=== PATIENT | female | born 1995 | race American Indian/Alaskan Native ===

== ENCOUNTER 2018-01-01 09:18 | Emergency (ER) | payer SELFPAY ==
[2018-01-01 09:32] VITALS: BP 119/72
--- NOTE | 2018-01-01 10:04 | Emergency Department Report ---
- General Chief Complaint: Upper Respiratory Infection Stated Complaint: CONGESTION/SINUS Time Seen by Provider: 01/01/18 09:59 Source: patient Mode of arrival: Ambulatory Limitations: No Limitations - History of Present Illness MD Complaint: cough, rhinorrhea, nasal congestion -: Gradual, days(s) (1) Severity: mild - Related Data Allergies Allergy/AdvReac Type Severity Reaction Status Date / Time No Known Allergies Allergy Verified 01/01/18 09:32 ED Review of Systems ROS: Stated complaint: CONGESTION/SINUS Other details as noted in HPI Constitutional: malaise. denies: fever ENT: throat pain Respiratory: denies: cough Gastrointestinal: denies: abdominal pain ED Past Medical Hx - Past Medical History Previous Medical History?: No - Surgical History Past Surgical History?: No - Social History Smoking Status: Never Smoker Substance Use Type: Alcohol, Marijuana ED Physical Exam - General Limitations: No Limitations General appearance: alert, in no apparent distress - Head Head exam: Present: atraumatic, normocephalic - Eye Eye exam: Present: normal appearance - ENT ENT exam: Present: normal orophraynx, mucous membranes moist - Neck Neck exam: Present: normal inspection. Absent: tenderness, meningismus - Respiratory Respiratory exam: Present: normal lung sounds bilaterally. Absent: respiratory distress, wheezes, rales, rhonchi, stridor - Cardiovascular Cardiovascular Exam: Present: regular rate, normal rhythm, normal heart sounds. Absent: bradycardia, tachycardia, systolic murmur, diastolic murmur - GI/Abdominal GI/Abdominal exam: Present: soft. Absent: distended, tenderness, guarding, rebound - Extremities Exam Extremities exam: Present: normal inspection - Psychiatric Psychiatric exam: Present: normal affect, normal mood - Skin Skin exam: Present: warm, dry, intact, normal color ED Course Vital Signs 01/01/18 09:28 Temperature 98.7 F Pulse Rate 91 H Respiratory 16 Rate Blood Pressure 119/72 O2 Sat by Pulse 99 Oximetry ED Medical Decision Making - Medical Decision Making URI, without fever, given supportive care instructions Critical care attestation.: If time is entered above; I have spent that time in minutes in the direct care of this critically ill patient, excluding procedure time. ED Disposition Clinical Impression: URI (upper respiratory infection) Disposition: - TO HOME OR SELFCARE Is pt being admited?: No Does the pt Need Aspirin: No Condition: Stable Instructions: Upper Respiratory Infection (ED) Forms: Work/School Release Form(ED)
== END 2018-01-01 10:09 | disposition home or self-care (01) ==
LOC: ED 09:18
DX: J06.9 Acute upper respiratory infection, unspecified (principal); F12.10 Cannabis abuse, uncomplicated
CPT/HCPCS: 99282

== ENCOUNTER 2018-01-02 18:29 | Emergency (ER) | payer SELFPAY ==
[2018-01-02 19:43] LABS: HCG Qualitative,Urine Negative (Negative)
[2018-01-02 19:44] LABS: Bilirubin,Urine NEG (Negative); Blood,Urine NEG (Negative); Color,Urine Yellow (Yellow); Mucus,Urine 3+ /HPF; Urobilinogen,Urine < 2.0 mg/dL (<2.0)
--- NOTE | 2018-01-02 19:45 | Emergency Department Report ---
ED Female HPI - General Chief complaint: Urogenital-Female Stated complaint: VAGINAL DISCHARGE Time Seen by Provider: 01/02/18 19:42 Source: patient Mode of arrival: Ambulatory Limitations: No Limitations - History of Present Illness Initial comments: 22-year-old -[place] female comes to the emergency room complaining of vaginal discharge with a foul odor and urinary frequency. Patient denies any abdominal pain no dysuria no nausea no vomiting no fever or chills. Patient essentially active with men unprotected one partner in the last 6 months. Patient's had a history of STD in the past. She does not have a primary care provider. Last menstrual period was 12/17/2017. Complaint: vaginal discharge -: week(s) (1) Are you Now?: No Last Menstrual Period: 12/17/17 EDC: 09/23/18 Associated Symptoms: vaginal discharge, other (urinary frequency) - Related Data Sexually active: Yes (with men one partner last 6 months unprotected) : 0 Previous Rx's Medication Instructions Recorded Last Taken Type Fluconazole [Diflucan TAB] 150 mg PO ONCE 1 Days #1 tablet 01/02/18 Unknown Rx Allergies Allergy/AdvReac Type Severity Reaction Status Date / Time No Known Allergies Allergy Verified 01/01/18 09:32 ED Review of Systems ROS: Stated complaint: VAGINAL DISCHARGE Other details as noted in HPI Comment: All other systems reviewed and negative Gastrointestinal: denies: abdominal pain, nausea, diarrhea Genitourinary: urgency, frequency, discharge ED Past Medical Hx - Past Medical History Previous Medical History?: No - Surgical History Past Surgical History?: No - Social History Smoking Status: Never Smoker Substance Use Type: None - Medications Home Medications: Home Medications Medication Instructions Recorded Confirmed Last Taken Type Fluconazole [Diflucan TAB] 150 mg PO ONCE 1 Days #1 tablet 01/02/18 Unknown Rx ED Physical Exam - General Limitations: No Limitations General appearance: alert, in no apparent distress - Head Head exam: Present: atraumatic, normocephalic - ENT ENT exam: Present: mucous membranes moist - Neck Neck exam: Present: normal inspection - External exam: Present: normal external exam. Absent: erythema, swelling Speculum exam: Present: vaginal discharge, cervical discharge Bi-manual exam: Present: normal bi-manual exam. Absent: cervical motion tendernes, adnexal tenderness, adnexal mass, uterine enlargement, uterine tenderness - Extremities Exam Extremities exam: Present: normal inspection - Back Exam Back exam: Present: normal inspection - Neurological Exam Neurological exam: Present: alert, oriented X3 - Psychiatric Psychiatric exam: Present: normal affect, normal mood - Skin Skin exam: Present: warm, dry, intact, normal color. Absent: rash ED Course Vital Signs 01/02/18 18:49 Temperature 98.9 F Pulse Rate 74 Respiratory 18 Rate Blood Pressure 126/72 ED Medical Decision Making - Lab Data Lab Results 01/02/18 Range/Units 19:30 Urine Color Yellow (Yellow) Urine Turbidity Slightly-cloudy (Clear) Urine pH 5.0 (5.0-7.0) Ur Specific Sandy 1.028 (1.003-1.030) Urine Protein 30 mg/dl (Negative) mg/dL Urine Glucose (UA) Neg (Negative) mg/dL Urine Ketones Tr (Negative) mg/dL Urine Blood Neg (Negative) Urine Nitrite Neg (Negative) Ur Reducing Substances Not Reportable Urine Bilirubin Neg (Negative) Urine Ictotest Not Reportable Urine Urobilinogen < 2.0 (<2.0) mg/dL Ur Leukocyte Esterase Sm (Negative) Urine WBC (Auto) 3.0 (0.0-6.0) /HPF Urine RBC (Auto) 4.0 (0.0-6.0) /HPF U Epithel Cells (Auto) 8.0 (0-13.0) /HPF Urine Mucus 3+ /HPF Urine HCG, Qual Negative (Negative) Microbiology 01/02/18 Unknown Cervix Wet Prep - Final - Medical Decision Making Patient has been evaluated by this provider in fast track. Pelvic exam has been completed Cultures have been obtained and sent to lab urinalysis urine test and culture pending Critical care attestation.: If time is entered above; I have spent that time in minutes in the direct care of this critically ill patient, excluding procedure time. ED Disposition Clinical Impression: Candidiasis of vagina Disposition: DC-01 TO HOME OR SELFCARE Is pt being admited?: No Does the pt Need Aspirin: No Condition: Stable Instructions: Vulvovaginal Candidiasis (ED) Additional Instructions: Please take medication as prescribed. You can bring your picture ID to medical records here at the hospital to obtain the results from here vaginal cultures. They will be available in the next 5-7 days. Prescriptions: Fluconazole [Diflucan TAB] 150 mg PO ONCE 1 Days #1 tablet Referrals: PRIMARY CARE,MD [Primary Care Provider] - 3-5 Days
[2018-01-02 21:07] VITALS: BP 128/72
== END 2018-01-02 21:06 | disposition home or self-care (01) ==
LOC: ED 18:29
DX: B37.3 Candidiasis of vulva and vagina (principal)
CPT/HCPCS: 81001; 81025; 87086; 87210; 87591

== ENCOUNTER 2018-07-21 13:40 | Emergency (ER) | payer OTHER ==
--- NOTE | 2018-07-21 13:45 | Emergency Department Report ---
Blank Doc - Documentation Documentation: This is a 23-year-old female that presents with URI symptoms. This initial assessment/diagnostic orders/clinical plan/treatment(s) is/are subject to change based on patient's health status, clinical progression and re- assessment by fellow clinical providers in the ED. Further treatment and workup at subsequent clinical providers discretion. Patient/guardians urged not to elope from the ED as their condition may be serious if not clinically assessed and managed. Initial orders include: 1- Patient sent to [facility] for further evaluation and treatment 2- CXR
[2018-07-21 13:48] VITALS: BP 118/73
--- NOTE | 2018-07-21 14:35 | XRay Report ---
ROUTINE CHEST, TWO VIEWS: HISTORY: Cough. The trachea, heart, mediastinal contour, lung cope and bony thorax are unremarkable. IMPRESSION: Unremarkable chest x-ray.
[2018-07-21] MEDS ORDERED: DUONEB *Not for PRN Use IH ONE (14:45)
--- NOTE | 2018-07-21 14:59 | Emergency Department Report ---
HPI - General Chief Complaint: Upper Respiratory Infection Time Seen by Provider: 07/21/18 13:43 - HPI HPI: 23-year-old female presents to the emergency department with complaint of a 3 to four-day history of head and chest congestion, mixed dry and productive cough. She denies any chest pain, shortness of breath, lower extremity swelling, fever, nausea, vomiting. No recent travel or sick contacts at home. The patient does not have a primary care physician. She tried some Tylenol cough and cold without any relief. She is a smoker but denies any illicit drug use. ED Past Medical Hx - Past Medical History Previous Medical History?: No - Surgical History Past Surgical History?: No - Social History Smoking Status: Never Smoker Substance Use Type: Marijuana - Medications Home Medications: Home Medications Medication Instructions Recorded Confirmed Last Taken Type Fluconazole [Diflucan TAB] 150 mg PO ONCE 1 Days #1 tablet 01/02/18 Unknown Rx Fluconazole [Diflucan TAB] 100 mg PO QDAY #1 tablet 04/30/18 Unknown Rx Sulfamethoxazole/Trimethoprim 1 each PO BID #10 tablet 04/30/18 Unknown Rx [Bactrim DS TAB] ALBUTEROL Inhaler (OR & NICU) 2 puff IH QID PRN #1 inhalation 07/21/18 Unknown Rx [ProAir HFA Inhaler] Fluticasone [Flonase] 1 spray NS BID #1 bottle 07/21/18 Unknown Rx Pseudoephedrine ER [Sudafed 12 Hr] 120 mg PO BID #10 tablet.er 07/21/18 Unknown Rx guaiFENesin [Mucinex] 600 mg PO BID #10 tab.er.12h 07/21/18 Unknown Rx ED Review of Systems ROS: Stated complaint: CONGESTION Other details as noted in HPI Comment: All other systems reviewed and negative Constitutional: denies: chills, fever Eyes: denies: eye pain, vision change ENT: congestion. denies: ear pain Respiratory: cough. denies: shortness of breath Cardiovascular: denies: chest pain, palpitations Gastrointestinal: denies: abdominal pain, vomiting Genitourinary: denies: urgency, dysuria Musculoskeletal: denies: back pain, arthralgia Skin: denies: rash, lesions Neurological: denies: headache, weakness Physical Exam - Physical Exam Vital Signs: Vital Signs 07/21/18 13:44 Temperature 98.4 F Pulse Rate 81 Respiratory 16 Rate Blood Pressure 118/73 O2 Sat by Pulse 99 Oximetry Physical Exam: GENERAL: The patient is well-developed well-nourished. HEENT: Normocephalic. Atraumatic. Patient has moist mucous membranes. Oropharynx is clear. There is boggy nasal mucosa and patient speaks with a nasally voice secondary to congestion. EYES: Extraocular motions are intact. Pupils are equal and reactive to light bilaterally. NECK: Supple. Trachea is midline. CHEST/LUNGS: Clear to auscultation. There is no respiratory distress noted. HEART/CARDIOVASCULAR: Regular. There is no tachycardia. There is no obvious murmur. ABDOMEN: There is no abdominal distention. SKIN: Skin is warm and dry. NEURO: The patient is awake, alert, and oriented. The patient is cooperative. The patient has no focal neurologic deficits. The patient has normal speech. MUSCULOSKELETAL: There is no tenderness or deformity. There is no limitation range of motion. There is no evidence of acute injury. ED Course Vital Signs 07/21/18 13:44 Temperature 98.4 F Pulse Rate 81 Respiratory 16 Rate Blood Pressure 118/73 O2 Sat by Pulse 99 Oximetry ED Medical Decision Making - Radiology Data Radiology results: image reviewed interpreted by me: Chest x-ray does not show any pneumothorax, pleural effusion, pneumonia or obvious focal consolidation. - Medical Decision Making Patient presents to the emergency department with a few days of head and chest congestion, and a mixed dry and productive cough. No fever, no shortness of breath. On examination the patient does not appear to be in any respiratory or general distress. She has some boggy nasal mucosa and speaks with a very nasally voice exhibiting nasal and/or head congestion. Chest x-ray did not show any pleural effusions, pneumothorax, nausea, focal consolidation, or any other acute process. Patient was given a breathing treatment and says that it helped with some chest tightness she had but on examination there was no significant wheezing or bronchospasm. The patient's symptoms and examination appear most consistent with a upper respiratory infection/viral syndrome. She will placed on an albuterol inhaler, Mucinex, Sudafed and Flonase. She will be given a primary care physician referral. She will return to the ER with any worsening of her symptoms or any acute distress. - Differential Diagnosis URI, pneumonia, influenza Critical Care Time: No Critical care attestation.: If time is entered above; I have spent that time in minutes in the direct care of this critically ill patient, excluding procedure time. ED Disposition Clinical Impression: Sinus congestion, Chest congestion Upper respiratory infection Qualifiers: URI type: unspecified URI Qualified Code(s): J06.9 - Acute upper respiratory infection, unspecified Disposition: DC- TO HOME OR SELFCARE Is pt being admited?: No Condition: Stable Instructions: Upper Respiratory Infection (ED) Additional Instructions: Please follow up with a primary care physician in the next few days. Return to the emergency Department with any worsening of your symptoms or any acute distress. Prescriptions: Fluticasone [Flonase] 1 spray NS BID #1 bottle guaiFENesin [Mucinex] 600 mg PO BID #10 tab.er.12h ALBUTEROL Inhaler (OR & NICU) [ProAir HFA Inhaler] 2 puff IH QID PRN #1 inhalation PRN Reason: Shortness Of Breath Pseudoephedrine ER [Sudafed 12 Hr] 120 mg PO BID #10 tablet.er Referrals: JUNG URIAS MD [Staff Physician] - 2-3 Days [facility] [Outside] - 2-3 Days Forms: Work/School Release Form(ED) Time of Disposition: 15:22
== END 2018-07-21 15:39 | disposition home or self-care (01) ==
LOC: ED 13:40
DX: J06.9 Acute upper respiratory infection, unspecified (principal); F12.10 Cannabis abuse, uncomplicated
CPT/HCPCS: 71046; 94640

== ENCOUNTER 2018-11-30 21:45 | Emergency (ER) | payer SELFPAY ==
[2018-11-30 21:53] VITALS: BP 137/81
--- NOTE | 2018-11-30 21:55 | Event Note ---
ED Screening Note Date of service: 11/30/18 Time: 21:52 ED Screening Note: 23 y o female presents with cp thats worse with palpation This initial assessment/diagnostic orders/clinical plan/treatment(s) is/are subject to change based on patients health status, clinical progression and re-assessment by fellow clinical providers in the ED. Further treatment and workup at subsequent clinical providers discretion. Patient/guardian urged not to elope from the ED as their condition may be serious if not clinically assessed and managed. Initial orders include:
--- NOTE | 2018-11-30 22:58 | XRay Report ---
CHEST 2 VIEWS INDICATION: cp. COMPARISON: 07/21/2018. FINDINGS: Support devices: None. Heart: Within normal limits. Lungs/Pleura: No acute air space or interstitial disease. No significant pleural effusion. IMPRESSION: No acute findings. Signer Name: Matthieu Newman MD Signed: 11/30/2018 10:54 PM Workstation Name: [id number]
--- NOTE | 2018-12-01 01:46 | Emergency Department Report ---
ED General Adult HPI - General Chief complaint: Chest Pain Stated complaint: CP/HEADACHE Time Seen by Provider: 11/30/18 21:52 Source: patient Mode of arrival: Ambulatory Limitations: No Limitations - History of Present Illness Initial comments: 23-year-old female department complaining of various episodes of chest pain except with range of motion. Deep(couple months. She reports no trauma, no fever, chills, sweats, hemoptysis, no hematemesis, no hematochezia. No palliative factors -: Sudden Location: chest Radiation: non-radiation Quality: aching, dull Consistency: constant Improves with: none Worsens with: none Associated Symptoms: denies: cough, diaphoresis, fever/chills, loss of appetite, malaise, nausea/vomiting, shortness of breath, syncope, weakness Treatments Prior to Arrival: none - Related Data Previous Rx's Medication Instructions Recorded Last Taken Type Fluconazole [Diflucan TAB] 150 mg PO ONCE 1 Days #1 tablet 01/02/18 Unknown Rx Fluconazole [Diflucan TAB] 100 mg PO QDAY #1 tablet 04/30/18 Unknown Rx Sulfamethoxazole/Trimethoprim 1 each PO BID #10 tablet 04/30/18 Unknown Rx [Bactrim DS TAB] ALBUTEROL Inhaler (OR & NICU) 2 puff IH QID PRN #1 inhalation 07/21/18 Unknown Rx [ProAir HFA Inhaler] Fluticasone [Flonase] 1 spray NS BID #1 bottle 07/21/18 Unknown Rx Pseudoephedrine ER [Sudafed 12 Hr] 120 mg PO BID #10 tablet.er 07/21/18 Unknown Rx guaiFENesin [Mucinex] 600 mg PO BID #10 tab.er.12h 07/21/18 Unknown Rx Ketorolac [Toradol] 10 mg PO Q6H PRN #15 tablet 12/01/18 Unknown Rx Allergies Allergy/AdvReac Type Severity Reaction Status Date / Time No Known Allergies Allergy Verified 01/01/18 09:32 ED Review of Systems ROS: Stated complaint: CP/HEADACHE Other details as noted in HPI Comment: All other systems reviewed and negative ED Past Medical Hx - Past Medical History Previous Medical History?: Yes Hx Asthma: Yes - Surgical History Past Surgical History?: No - Social History Smoking Status: Former Smoker Substance Use Type: None - Medications Home Medications: Home Medications Medication Instructions Recorded Confirmed Last Taken Type Fluconazole [Diflucan TAB] 150 mg PO ONCE 1 Days #1 tablet 01/02/18 Unknown Rx Fluconazole [Diflucan TAB] 100 mg PO QDAY #1 tablet 04/30/18 Unknown Rx Sulfamethoxazole/Trimethoprim 1 each PO BID #10 tablet 04/30/18 Unknown Rx [Bactrim DS TAB] ALBUTEROL Inhaler (OR & NICU) 2 puff IH QID PRN #1 inhalation 07/21/18 Unknown Rx [ProAir HFA Inhaler] Fluticasone [Flonase] 1 spray NS BID #1 bottle 07/21/18 Unknown Rx Pseudoephedrine ER [Sudafed 12 Hr] 120 mg PO BID #10 tablet.er 07/21/18 Unknown Rx guaiFENesin [Mucinex] 600 mg PO BID #10 tab.er.12h 07/21/18 Unknown Rx Ketorolac [Toradol] 10 mg PO Q6H PRN #15 tablet 12/01/18 Unknown Rx ED Physical Exam - General Limitations: No Limitations General appearance: alert, in no apparent distress - Head Head exam: Present: atraumatic, normocephalic - Eye Eye exam: Present: normal appearance, PERRL, EOMI Pupils: Present: normal accommodation - ENT ENT exam: Present: normal exam, normal orophraynx, mucous membranes moist, TM's normal bilaterally - Neck Neck exam: Present: normal inspection - Respiratory Respiratory exam: Present: normal lung sounds bilaterally, chest wall tenderness (this of the chest. Lungs sternal border, worse with palpation also. Adduction. No bruising noted.). Absent: respiratory distress, wheezes, rales, accessory muscle use, decreased breath sounds - Cardiovascular Cardiovascular Exam: Present: regular rate, normal rhythm. Absent: bradycardia, tachycardia, systolic murmur, diastolic murmur, rubs, gallop - GI/Abdominal GI/Abdominal exam: Present: soft, normal bowel sounds. Absent: guarding, rebound, hypoactive bowel sounds, organomegaly, mass, bruit, pulsatile mass - Extremities Exam Extremities exam: Present: normal inspection, full ROM - Back Exam Back exam: Present: normal inspection, full ROM. Absent: CVA tenderness (R), CVA tenderness (L) - Neurological Exam Neurological exam: Present: alert, oriented X3, CN II-XII intact - Psychiatric Psychiatric exam: Present: normal affect, normal mood - Skin Skin exam: Present: warm, dry, intact, normal color. Absent: rash ED Course Vital Signs 11/30/18 21:49 Temperature 98.1 F Pulse Rate 102 H Respiratory 16 Rate Blood Pressure 137/81 O2 Sat by Pulse 100 Oximetry Critical care attestation.: If time is entered above; I have spent that time in minutes in the direct care of this critically ill patient, excluding procedure time. ED Disposition Clinical Impression: Costochondral chest pain Disposition: TO HOME OR SELFCARE Is pt being admited?: No Does the pt Need Aspirin: No Condition: Stable Instructions: Chest Pain (ED), Costochondritis (ED) Prescriptions: Ketorolac [Toradol] 10 mg PO Q6H PRN #15 tablet PRN Reason: Pain Referrals: PRIMARY CARE, [Primary Care Provider] - 3-5 Days [facility] [Provider Group] - 3-5 Days
== END 2018-12-01 02:50 | disposition home or self-care (01) ==
LOC: ED 21:45
DX: M94.0 Chondrocostal junction syndrome [Tietze] (principal); J45.909 Unspecified asthma, uncomplicated
CPT/HCPCS: 71046

== ENCOUNTER 2018-12-06 15:05 | Emergency (ER) | payer SELFPAY ==
--- NOTE | 2018-12-06 15:46 | Event Note ---
ED Screening Note Date of service: 12/06/18 Time: 15:45 ED Screening Note: 23 y o femle presents with nausea and vomitting states LMP: 11/07/18 This initial assessment/diagnostic orders/clinical plan/treatment(s) is/are subject to change based on patients health status, clinical progression and re- assessment by fellow clinical providers in the ED. Further treatment and workup at subsequent clinical providers discretion. Patient/guardian urged not to elope from the ED as their condition may be serious if not clinically assessed and managed. Initial orders include: ua, upt
[2018-12-06 15:47] VITALS: BP 124/74
[2018-12-06 16:35] LABS: Bilirubin,Urine NEG (Negative); Blood,Urine SM (Negative); Color,Urine Yellow (Yellow); Mucus,Urine FEW /HPF; Protein,Urine <15 mg/dL mg/dL (Negative); Urobilinogen,Urine < 2.0 mg/dL (<2.0)
[2018-12-06 16:44] LABS: HCG Qualitative,Urine Positive (Negative)
--- NOTE | 2018-12-06 18:06 | Emergency Department Report ---
ED General Adult HPI - General Chief complaint: Nausea/Vomiting/Diarrhea Stated complaint: TEST Time Seen by Provider: 12/06/18 15:44 Source: patient Mode of arrival: Ambulatory Limitations: No Limitations - History of Present Illness Initial comments: 23-year-old male female to emergency Department complaining of nausea and doesn't have a tendency test. She reports no pain, no vaginal bleeding, vaginal discharge or dysuria. No fever, chills, sweats. - Related Data Previous Rx's Medication Instructions Recorded Last Taken Type Fluconazole [Diflucan TAB] 150 mg PO ONCE 1 Days #1 tablet 01/02/18 Unknown Rx Fluconazole [Diflucan TAB] 100 mg PO QDAY #1 tablet 04/30/18 Unknown Rx Sulfamethoxazole/Trimethoprim 1 each PO BID #10 tablet 04/30/18 Unknown Rx [Bactrim DS TAB] ALBUTEROL Inhaler (OR & NICU) 2 puff IH QID PRN #1 inhalation 07/21/18 Unknown Rx [ProAir HFA Inhaler] Fluticasone [Flonase] 1 spray NS BID #1 bottle 07/21/18 Unknown Rx Pseudoephedrine ER [Sudafed 12 Hr] 120 mg PO BID #10 tablet.er 07/21/18 Unknown Rx guaiFENesin [Mucinex] 600 mg PO BID #10 tab.er.12h 07/21/18 Unknown Rx Ketorolac [Toradol] 10 mg PO Q6H PRN #15 tablet 12/01/18 Unknown Rx Allergies Allergy/AdvReac Type Severity Reaction Status Date / Time No Known Allergies Allergy Verified 01/01/18 09:32 ED Review of Systems ROS: Stated complaint: TEST Other details as noted in HPI Comment: All other systems reviewed and negative ED Past Medical Hx - Past Medical History Hx Asthma: Yes - Surgical History Past Surgical History?: No - Social History Smoking Status: Former Smoker Substance Use Type: Alcohol - Medications Home Medications: Home Medications Medication Instructions Recorded Confirmed Last Taken Type Fluconazole [Diflucan TAB] 150 mg PO ONCE 1 Days #1 tablet 01/02/18 Unknown Rx Fluconazole [Diflucan TAB] 100 mg PO QDAY #1 tablet 04/30/18 Unknown Rx Sulfamethoxazole/Trimethoprim 1 each PO BID #10 tablet 04/30/18 Unknown Rx [Bactrim DS TAB] ALBUTEROL Inhaler (OR & NICU) 2 puff IH QID PRN #1 inhalation 07/21/18 Unknown Rx [ProAir HFA Inhaler] Fluticasone [Flonase] 1 spray NS BID #1 bottle 07/21/18 Unknown Rx Pseudoephedrine ER [Sudafed 12 Hr] 120 mg PO BID #10 tablet.er 07/21/18 Unknown Rx guaiFENesin [Mucinex] 600 mg PO BID #10 tab.er.12h 07/21/18 Unknown Rx Ketorolac [Toradol] 10 mg PO Q6H PRN #15 tablet 12/01/18 Unknown Rx ED Physical Exam - General Limitations: No Limitations General appearance: alert, in no apparent distress - Head Head exam: Present: atraumatic, normocephalic - Eye Eye exam: Present: normal appearance, PERRL, EOMI Pupils: Present: normal accommodation - ENT ENT exam: Present: mucous membranes moist - Neck Neck exam: Present: normal inspection - Respiratory Respiratory exam: Present: normal lung sounds bilaterally. Absent: respiratory distress - Cardiovascular Cardiovascular Exam: Present: regular rate, normal rhythm. Absent: systolic murmur, diastolic murmur, rubs, gallop - GI/Abdominal GI/Abdominal exam: Present: soft, normal bowel sounds - Extremities Exam Extremities exam: Present: normal inspection - Back Exam Back exam: Present: normal inspection - Neurological Exam Neurological exam: Present: alert, oriented X3 - Psychiatric Psychiatric exam: Present: normal affect, normal mood - Skin Skin exam: Present: warm, dry, intact, normal color. Absent: rash ED Course Vital Signs 12/06/18 15:44 Temperature 98.7 F Pulse Rate 96 H Respiratory 18 Rate Blood Pressure 124/74 O2 Sat by Pulse 99 Oximetry ED Medical Decision Making - Medical Decision Making Gen. 3-year-old female presents complaining of occasional nausea and primarily requesting a test. She denies any pain. No vaginal bleeding, vaginal discharge. No flank, no rashes. She states she had a suspicion she was . The case has no other complaints or concerns. After discovering her . I discussed with her the need for vitamins and follow-up with an [facility] Critical care attestation.: If time is entered above; I have spent that time in minutes in the direct care of this critically ill patient, excluding procedure time. ED Disposition Clinical Impression: Positive test Disposition: DC-01 TO HOME OR SELFCARE Is pt being admited?: No Does the pt Need Aspirin: No Condition: Stable Instructions: (ED) Referrals: [facility] [Provider Group] - 3-5 Days
== END 2018-12-06 18:09 | disposition home or self-care (01) ==
LOC: ED 15:05
DX: O26.891 Other specified pregnancy related conditions, first trimester (principal)
CPT/HCPCS: 81001; 81025

== ENCOUNTER 2019-02-22 11:32 | Emergency (ER) | payer MEDICAID ==
[2019-02-22 11:41] VITALS: BP 126/80
--- NOTE | 2019-02-22 11:46 | Event Note ---
ED Screening Note Date of service: 02/22/19 Time: 11:44 ED Screening Note: 23 y/o comes in for wanting a std check up. No pain no bleeding. This initial assessment/diagnostic orders/clinical plan/treatment(s) is/are subject to change based on patients health status, clinical progression and re- assessment by fellow clinical providers in the ED. Further treatment and workup at subsequent clinical providers discretion. Patient/guardian urged not to elope from the ED as their condition may be serious if not clinically assessed and managed. Initial orders include:
== END 2019-02-22 11:45 | disposition left against medical advice (07) ==
LOC: ED 11:32
DX: N89.8 Other specified noninflammatory disorders of vagina (principal); Z53.21 Procedure and treatment not carried out due to patient leaving prior to being seen by health care provider

== ENCOUNTER 2019-02-24 15:33 | Emergency (ER) | payer MEDICAID ==
[2019-02-24 16:23] VITALS: BP 121/78
[2019-02-24 17:13] LABS: Basophils % (Auto) 0.6 % (0.0-1.8); Eosinophils % (Auto) 1.1 % (0.0-4.3); Hematocrit 32.1 % (30.3-42.9); Hemoglobin 10.3 gm/dl (10.1-14.3); Lymphocytes # (Auto) 1.8 K/mm3 (1.2-5.4); Lymphocytes % (Auto) 45.6 % (13.4-35.0); Mean Corpuscular HGB Conc 32 % (30-34); Mean Corpuscular Volume 81 fl (79-97); Monocytes # (Auto) 0.3 K/mm3 (0.0-0.8); Monocytes % (Auto) 6.8 % (0.0-7.3); Platelet Count 282 K/mm3 (140-440); Red Blood Count 3.95 M/mm3 (3.65-5.03); Red Cell Distribution Width 16.6 % (13.2-15.2)
--- NOTE | 2019-02-24 17:19 | Emergency Department Report ---
HPI - General Chief Complaint: Vaginal Bleeding Time Seen by Provider: 02/24/19 17:13 - HPI HPI: 23-year-old -Finn[place] female presents to the emergency department for some abnormal vaginal bleeding. The patient had a D&C done on which she was about 13 weeks . She says that she thinks she had a menstrual cycle on February 18 through the of this month. However the bleeding restarted today. She said it was moderate with a large clot came out. She was having some pelvic discomfort that has since resolved. She has not taken anything for her symptoms prior to arrival. Past medical history of asthma. Her PAY AGENT is [facility]. ED Past Medical Hx - Past Medical History Previous Medical History?: Yes Hx Asthma: Yes - Surgical History Past Surgical History?: Yes Additional Surgical History: D&C 01/11/2019 - Social History Smoking Status: Never Smoker Substance Use Type: None - Medications Home Medications: Home Medications Medication Instructions Recorded Confirmed Last Taken Type Fluconazole [Diflucan TAB] 150 mg PO ONCE 1 Days #1 tablet 01/02/18 Unknown Rx Fluconazole [Diflucan TAB] 100 mg PO QDAY #1 tablet 04/30/18 Unknown Rx Sulfamethoxazole/Trimethoprim 1 each PO BID #10 tablet 04/30/18 Unknown Rx [Bactrim DS TAB] ALBUTEROL Inhaler (OR & NICU) 2 puff IH QID PRN #1 inhalation 07/21/18 Unknown Rx [ProAir HFA Inhaler] Fluticasone [Flonase] 1 spray NS BID #1 bottle 07/21/18 Unknown Rx Pseudoephedrine ER [Sudafed 12 Hr] 120 mg PO BID #10 tablet.er 07/21/18 Unknown Rx guaiFENesin [Mucinex] 600 mg PO BID #10 tab.er.12h 07/21/18 Unknown Rx Ketorolac [Toradol] 10 mg PO Q6H PRN #15 tablet 12/01/18 Unknown Rx ED Review of Systems ROS: Stated complaint: BLEEDING/PAIN Other details as noted in HPI Comment: All other systems reviewed and negative Constitutional: denies: chills, fever Respiratory: denies: cough, shortness of breath Cardiovascular: denies: chest pain, palpitations Gastrointestinal: abdominal pain. denies: nausea, vomiting Genitourinary: abnormal menses. denies: dysuria, discharge Musculoskeletal: denies: back pain Skin: denies: rash, lesions Neurological: denies: headache, weakness Physical Exam - Physical Exam Vital Signs: Vital Signs 02/24/19 16:22 Temperature 98.4 F Pulse Rate 84 Respiratory 16 Rate Blood Pressure 121/78 [Left] O2 Sat by Pulse 99 Oximetry Physical Exam: GENERAL: The patient is well-developed well-nourished. HENT: Normocephalic. Atraumatic. Patient has moist mucous membranes. EYES: Extraocular motions are intact. NECK: Supple. Trachea is midline. CHEST/LUNGS: Clear to auscultation. There is no respiratory distress noted. HEART/CARDIOVASCULAR: Regular. There is no tachycardia. There is no murmur. ABDOMEN: Abdomen is soft, nontender. Patient has normal bowel sounds. There is no abdominal distention. SKIN: Skin is warm and dry. NEURO: The patient is awake, alert, and oriented. The patient is cooperative. Normal speech. MUSCULOSKELETAL: There is no tenderness or deformity. There is no evidence of acute injury. ED Course Vital Signs 02/24/19 16:22 Temperature 98.4 F Pulse Rate 84 Respiratory 16 Rate Blood Pressure 121/78 [Left] O2 Sat by Pulse 99 Oximetry ED Medical Decision Making - Lab Data Result diagrams: 02/24/19 16:49 - Radiology Data Radiology results: report reviewed US transvaginal, US pelvis duplex doppler comp INDICATION / CLINICAL INFORMATION: abnormal vag bleeding, pelvic pain, D C 1 month. COMPARISON: None FINDINGS: Uterus is slightly anteverted but normal in size and echogenicity. Endometrial thickness is normal, measuring 7 mm. An area of decreased echogenicity in the most fundal portion of the endometrial canal could represent fluid or hemorrhage. Ovaries are normal. No free fluid. IMPRESSION: 1. Tiny area of decreased echogenicity in the most fundal portion of the endometrial canal, fluid versus minimal hemorrhage. - Medical Decision Making This patient presents to the emergency department with some abnormal vaginal b leeding. She thinks that she had her first post menstrual cycle on February 18 that lasted 3 days and then she started bleeding again today. She has a pelvic pain earlier that has since resolved. Negative for at this time. Ultrasound shows a tiny area of echogenicity within the uterus that could be fluid versus bleeding. Her vital signs are stable throughout her ED course. The rest of her labs are unremarkable as well. The patient will be discharged to follow-up with her PAY AGENT and will return to the emergency Department with any worsening of her symptoms or any acute distress. - Differential Diagnosis , products of retained conception, malignancy, fibroids Critical Care Time: No Critical care attestation.: If time is entered above; I have spent that time in minutes in the direct care of this critically ill patient, excluding procedure time. ED Disposition Clinical Impression: Dysfunctional uterine bleeding Disposition: - TO HOME OR SELFCARE Is pt being admited?: No Condition: Stable Instructions: Dysfunctional Uterine Bleeding (ED) Additional Instructions: Please follow-up with your PAY AGENT in the next few days. Return to the emergency Department with any worsening of your symptoms or any acute distress. Referrals: OBGYN, Your [Other] - 2-3 Days Time of Disposition: 19:55
[2019-02-24 17:25] LABS: Bacteria,Urine 1+ /HPF (Negative); Bilirubin,Urine NEG (Negative); Blood,Urine LG (Negative); Color,Urine Straw (Yellow); Protein,Urine <15 mg/dL mg/dL (Negative); Urobilinogen,Urine < 2.0 mg/dL (<2.0)
--- NOTE | 2019-02-24 19:52 | Ultrasound Report ---
US transvaginal, US pelvis duplex doppler comp INDICATION / CLINICAL INFORMATION: abnormal vag bleeding, pelvic pain, D C 1 month. COMPARISON: None FINDINGS: Uterus is slightly anteverted but normal in size and echogenicity. Endometrial thickness is normal, m easuring 7 mm. An area of decreased echogenicity in the most fundal portion of the endometrial canal could represent fluid or hemorrhage. Ovaries are normal. No free fluid. IMPRESSION: 1. Tiny area of decreased echogenicity in the most fundal portion of the endometrial canal, fluid pete david minimal hemorrhage. Otherwise negative study. Signer Name: Yon Murphy MD Signed: 02/24/2019 7:48 PM Workstation Name: [id number]
== END 2019-02-24 20:00 | disposition home or self-care (01) ==
LOC: ED 15:33
DX: N93.8 Other specified abnormal uterine and vaginal bleeding (principal); J45.909 Unspecified asthma, uncomplicated; Z79.899 Other long term (current) drug therapy
CPT/HCPCS: 36415; 76830; 81001; 84702; 84703; 85025; 86900; 86901; 93975

== ENCOUNTER 2019-06-09 09:38 | Emergency (ER) | payer MEDICAID ==
[2019-06-09 09:58] VITALS: BP 120/78
--- NOTE | 2019-06-09 11:18 | Emergency Department Report ---
Minor Respiratory - HPI Chief Complaint: Upper Respiratory Infection Stated Complaint: FLU SX Time Seen by Provider: 06/09/19 10:59 Duration: 2 Days Minor Respiratory: Yes Rhinorrhea, Yes Sore Throat, Yes Able to Tolerate Fluids, No Ear Pain, No Cough, No Sick Contacts, No Hemoptysis, No Chest Pain, No Shortness of Breath, No Fever Other History: 23-year-old -[place] female presents to the emergency room complaining of a sore throat, runny nose and body aches x2 days. Patient reports he is taken NyQuil TheraFlu and Tylenol. Patient denies any nausea vomiting or diarrhea. Patient admits to a headache. Patient has not had a flu vaccine, she has not traveled in the last 14 days. She denies any fever. He does not work and the report. ED Review of Systems ROS: Stated complaint: FLU SX Other details as noted in HPI ED Past Medical Hx - Past Medical History Hx Asthma: Yes - Surgical History Past Surgical History?: No Additional Surgical History: D&C 01/11/2019 - Social History Smoking Status: Current Every Day Smoker Substance Use Type: None - Medications Home Medications: Home Medications Medication Instructions Recorded Confirmed Last Taken Type Fluconazole [Diflucan TAB] 150 mg PO ONCE 1 Days #1 tablet 01/02/18 Unknown Rx Fluconazole [Diflucan TAB] 100 mg PO QDAY #1 tablet 04/30/18 Unknown Rx Sulfamethoxazole/Trimethoprim 1 each PO BID #10 tablet 04/30/18 Unknown Rx [Bactrim DS TAB] Albuterol INH(or & Nicu Only) 2 puff IH QID PRN #1 inhalation 07/21/18 Unknown Rx [ProAir HFA Inhaler] Fluticasone [Flonase] 1 spray NS BID #1 bottle 07/21/18 Unknown Rx Pseudoephedrine ER [Sudafed 12 Hr] 120 mg PO BID #10 tablet.er 07/21/18 Unknown Rx guaiFENesin [Mucinex] 600 mg PO BID #10 tab.er.12h 07/21/18 Unknown Rx Ketorolac [Toradol] 10 mg PO Q6H PRN #15 tablet 12/01/18 Unknown Rx Minor Respiratory Exam - Exam General: Vital signs noted. No distress. Alert and acting appropriately. HEENT: Yes Pharyngeal Erythema, Yes Rhinorrhea, Yes Frontal Tenderness, Yes Maxillary Tenderness, No Pharyngeal Exudates, No Moist Mucous Membranes, No Conjuctival Injection Ear: Neither TM Bulge, Neither TM Erythema, Neither EAC Pain, Neither EAC Discharge Neck: Yes Supple, No Adenopathy Lungs: Yes Good Air Exchange, No Wheezes, No Ronchi, No Stridor, No Cough, No Labored Respirations, No Retractions, No Use of Accessory Muscles, No Other Abnormal Lung Sounds Neurologic: Alert and oriented, no deficits. Musculoskeletal: Unremarkable. ED Course Vital Signs 06/09/19 09:56 Temperature 97.8 F Pulse Rate 90 Respiratory 20 Rate Blood Pressure 120/78 O2 Sat by Pulse 100 Oximetry ED Medical Decision Making - Lab Data Laboratory Tests 06/09/19 Unknown Influenza A (Rapid) Negative Influenza B (Rapid) Negative Group A Strep Rapid Negative - Medical Decision Making 23-year-old -[place] female presents to the emergency room complaining of a sore throat, runny nose and body aches x2 days. Patient reports he is taken NyQuil TheraFlu and Tylenol. Patient denies any nausea vomiting or diarrhea. Patient admits to a headache. Patient has not had a flu vaccine, she has not traveled in the last 14 days. She denies any fever. He does not work and the report. Flu is negative, rapid strep is negative patient will discharge home with information of supportive care.Strep test negative flu test negative. Recommend supportive care increase fluid intake Tylenol or ibuprofen for body aches Flonase [id number] Afrin at bedtime. Follow-up with the primary care provider if your symptoms persist or gets worse Critical care attestation.: If time is entered above; I have spent that time in minutes in the direct care of this critically ill patient, excluding procedure time. ED Disposition Clinical Impression: Viral syndrome, Headache, Rhinorrhea, Sinus pressure Is pt being admited?: No Does the pt Need Aspirin: No Condition: Stable Additional Instructions: Strep test negative flu test negative. Recommend supportive care increase fluid intake Tylenol or ibuprofen for body aches Flonase [id number] Afrin at bedtime. Follow-up with the primary care provider if your symptoms persist or gets worse Referrals: PRIMARY CARE, [Primary Care Provider] - 3-5 Days Forms: Work/School Release Form(ED)
== END 2019-06-09 12:32 | disposition home or self-care (01) ==
LOC: ED 09:38
DX: B34.9 Viral infection, unspecified (principal); R51 Headache; J32.9 Chronic sinusitis, unspecified; J34.89 Other specified disorders of nose and nasal sinuses; F17.200 Nicotine dependence, unspecified, uncomplicated; J45.909 Unspecified asthma, uncomplicated; Z79.899 Other long term (current) drug therapy; Z98.890 Other specified postprocedural states
CPT/HCPCS: 87116; 87400; 87430; 99283